=== PATIENT | female | born 1970 | race Caucasian/White ===

== ENCOUNTER → 2016-09-23 | Outpatient (CLI) | payer OTHER ==
[~2016-09-23] MED LIST: ACET1TAB84 PO; ADVIN10/60 INH; ADVIN25050 INH; AZEL30SP NAE; BENZ100C84 PO; CLR10 PO; IBUP-1050 PO; KETO10TA PO; MELO7.5T5 PO; MONT1TAB3 PO; OXYC-57 PO; TRAM-10 PO; VNTHFA/IN INH
--- NOTE | 2016-09-23 09:00 | DIAGNOSTIC IMAGING REPORT ---
THYROID ULTRASOUND CLINICAL HISTORY: Incidental left lobe thyroid nodule. COMPARISON STUDY: None. TECHNIQUE: Sonography of the thyroid gland was performed. FINDINGS: The right thyroid lobe measures 4.4 x 1.8 x 1.6 cm and the left lobe measures 6.5 x 2.2 x 3.1 cm. There is a 0.4 cm hypoechoic right lobe nodule. Note is made of a dominant nodule within the lower pole of the left lobe that measures 3.2 x 2.2 x 3.1 cm. This nodule is solid, heterogeneous and slightly echogenic. There is an adjacent 0.9 x 0.5 x 0.9 cm left lobe nodule. IMPRESSION: Indeterminate 3.2 cm nodule within the lower pole of the left thyroid lobe. Ultrasound-guided fine needle aspiration is recommended based on size criteria. Electronically signed by: Chris Madrigal M.D. 09/23/2016 8:58 AM Dictated Date/Time: 09/23/2016 8:56 AM
== END | disposition home or self-care (01) ==
LOC: C.ULTR 08:32
PROVIDERS: ATTEND Family Medicine
DX: E04.1 Nontoxic single thyroid nodule (principal)

== ENCOUNTER → 2016-10-04 | Outpatient (CLI) | payer OTHER ==
--- NOTE | 2016-10-04 10:51 | DIAGNOSTIC IMAGING REPORT ---
Ultrasound guided thyroid aspiration GUIDANCE NEEDLE PLACEMENT CLINICAL HISTORY: THYROID NODULE nodule TECHNIQUE: Ultrasound guided thyroid aspiration COMPARISON STUDY: 09/23/2016 FINDINGS: Following description of the procedure and informed consent, 2 passes with a 25-gauge needle were made to the nodular density/inhomogeneous tissue lower pole left thyroid. There were no complications. IMPRESSION: Successful lower left thyroid fine-needle aspiration. No complications. Pathology report is pending. Electronically signed by: Blair Pacheco M.D. 10/04/2016 10:50 AM Dictated Date/Time: 10/04/2016 10:49 AM
== END | disposition home or self-care (01) ==
LOC: C.ULTR 09:36
PROVIDERS: ATTEND Family Medicine
DX: E04.1 Nontoxic single thyroid nodule (principal)

== ENCOUNTER → 2017-02-01 | Outpatient (CLI) | payer OTHER ==
--- NOTE | 2017-02-02 07:38 | MAMMOGRAPHY REPORT ---
BILATERAL DIGITAL SCREENING MAMMOGRAM TOMOSYNTHESIS WITH CAD: 02/01/2017 CLINICAL HISTORY: Routine screening. TECHNIQUE: Breast tomosynthesis in addition to standard 2D mammography was performed. Current study was also evaluated with a Computer Aided Detection (CAD) system. COMPARISON: Comparison is made to exams dated: 01/28/2016 mammogram, 01/17/2015 mammogram, 01/10/2015 ma mmogram, 01/09/2014 mammogram, and 01/08/2013 mammogram - [facility]. BREAST COMPOSITION: The tissue of both breasts is heterogeneously dense, which may obscure small mas ses. FINDINGS: There is a small stable faint grouping of punctate microcode calcifications in the right up per outer quadrant, that appears similar dating back to at least 01/09/2014, therefore likely benign. No new suspicious mass, architectural distortion or cluster of microcalcifications is seen bilatera lly. IMPRESSION: ACR BI-RADS CATEGORY 1: NEGATIVE There is no mammographic evidence of malignancy. A 1 year screening mammogram is recommended. The pa tient will receive written notification of the results. Approximately 10% of breast cancers are not detected with mammography. A negative mammographic report should not delay biopsy if a clinically suggestive mass is present. Sabine Monk M.D. ay/:02/01/2017 15:48:30 [employer] Designer: May VEGA(Shiraz)(M), [facility] letter sent: Normal 1/2 BI-RADS Code: ACR BI-RADS Category 1: Negative
== END | disposition home or self-care (01) ==
LOC: C.MAMM 07:40
PROVIDERS: ATTEND Obstetrics & Gynecology
DX: Z12.31 Encounter for screening mammogram for malignant neoplasm of breast (principal)

== ENCOUNTER → 2017-03-10 | Outpatient (CLI) | payer OTHER ==
--- NOTE | 2017-03-10 10:37 | DIAGNOSTIC IMAGING REPORT ---
CHEST 2 VIEWS ROUTINE CLINICAL HISTORY: R60.9 [id number] Shortness of breath COMPARISON STUDY: No previous studies for comparison. FINDINGS: The heart is at the upper limits of normal in size. There is no failure. There is no focal pulmonary consolidation. There are no pleural effusions.[ IMPRESSION: No active disease in the chest. Electronically signed by: Leonard Cortes M.D. 03/10/2017 10:36 AM Dictated Date/Time: 03/10/2017 10:35 AM
[2017-03-10 11:57] LABS: BASO % 0.4 %; BASO ABS # 0.03 K/uL (0-0.2); COMPLETE YES; EOS % 2.4 %; HEMATOCRIT 41.3 % (37-47); IG% 0.2 %; LYMPH % 24.6 %; LYMPH ABS # 1.98 K/uL (1.2-3.4); MEAN CELL VOLUME 86.9 fL (80-100); MEAN CORPUSCULAR HEMOGLOBIN 29.9 pg (25-34); MEAN CORPUSCULAR HGB CONC 34.4 g/dl (32-36); MEAN PLATELET VOLUME 10.1 fL (7.4-10.4); MONO % 4.1 %; NEUT % 68.3 %; PLATELET COUNT 257 K/uL (130-400); RED BLOOD COUNT 4.75 M/uL (4.2-5.4); WHITE BLOOD COUNT 8.04 K/uL (4.8-10.8)
[2017-03-10 12:07] LABS: INR 0.9 (0.9-1.1); PROTHROMBIN TIME (PATIENT) 10.1 SECONDS (9.0-12.0)
[2017-03-10 12:22] LABS: ALB/GLOB RATIO 0.9 (0.9-2); ALKALINE PHOSPHATASE 71 U/L (45-117); ALT/SGPT 27 U/L (12-78); AST/SGOT 12 U/L (15-37); BLOOD UREA NITROGEN 14 mg/dl (7-18); BUN/CREATININE RATIO 20.9 (10-20); CALCIUM 8.6 mg/dl (8.5-10.1); CARBON DIOXIDE 28 mmol/L (21-32); CHLORIDE 106 mmol/L (98-107); CREATININE 0.65 mg/dl (0.60-1.20); GLUCOSE 88 mg/dl (70-99); SODIUM 139 mmol/L (136-145)
== END | disposition home or self-care (01) ==
LOC: C.RAD1850 10:14
PROVIDERS: ATTEND Nurse Practitioner Family
DX: R60.9 Edema, unspecified (principal); R06.02 Shortness of breath

== ENCOUNTER 2017-04-22 10:44 | Day surgery (SDC) | payer OTHER ==
[2017-03-24 08:10] VITALS: BMI 50.0
--- NOTE | 2017-03-24 08:45 | PAT Medication Instructions ---
Service Date Mar 24, 2017. Current Home Medication List Acetaminophen (Tylenol Arthritis Ext Rel), 650 MG PO Q8H PRN for Pain Albuterol Hfa (Ventolin Hfa), 2-4 PUFFS INH Q6H PRN for Wheezing Azelastine Hcl-Fluticasone Pro (Dymista), 1 SPRY MYNOR QPM Fluticasone Prop/Salmeterol (Advair Diskus 250-50 Mcg/Dose), 1 PUFF INH BID Ibuprofen (Advil), 400 MG PO Q4 PRN for Pain Meloxicam (Mobic), 15 MG PO QPM Montelukast Sodium (Singulair), 1 TAB PO QPM Medication Instructions For Your Scheduled Surgery - Check with surgeon for instructions: Ibuprofen (Advil), 400 MG PO Q4 PRN for Pain Meloxicam (Mobic), 15 MG PO QPM - Take the following medications the morning of surgery with a sip of water: Acetaminophen (Tylenol Arthritis Ext Rel), 650 MG PO Q8H PRN for Pain (if needed ) Albuterol Hfa (Ventolin Hfa), 2-4 PUFFS INH Q6H PRN for Wheezing (if needed) Fluticasone Prop/Salmeterol (Advair Diskus 250-50 Mcg/Dose), 1 PUFF INH BID - Take the following medications as scheduled the night before surgery: Montelukast Sodium (Singulair), 1 TAB PO QPM Fluticasone Prop/Salmeterol (Advair Diskus 250-50 Mcg/Dose), 1 PUFF INH BID Azelastine Hcl-Fluticasone Pro (Dymista), 1 SPRY MYNOR QPM Acetaminophen (Tylenol Arthritis Ext Rel), 650 MG PO Q8H PRN for Pain (if needed) Albuterol Hfa (Ventolin Hfa), 2-4 PUFFS INH Q6H PRN for Wheezing (if needed) If you have any questions please call us at [phone] or [phone] or [phone]
--- NOTE | 2017-04-21 11:18 | HISTORY & PHYSICAL EXAMINATION ---
DATE OF ADMISSION: 04/22/2017 CHIEF COMPLAINT: Left shoulder pain. HISTORY OF PRESENT ILLNESS: Laureen is a very pleasant 46-year-old female who has been having left shoulder pain for the past 10 months. MRI and clinical examination have been diagnostic for AC joint arthritis of the right shoulder. After failing extensive conservative treatment including multiple injections, she has elected to proceed with a left shoulder arthroscopy. PAST MEDICAL HISTORY: Asthma, obesity and seasonal allergies. MEDICATIONS: Meloxicam daily, Singulair daily, Advair daily, nasal spray daily, and Advil as needed. PAST SURGICAL HISTORY: Cholecystectomy, knee arthroscopy and foot surgery. ALLERGIES: None. FAMILY HISTORY: Noncontributory. SOCIAL HISTORY: She denies any tobacco, alcohol or IV drug use. REVIEW OF SYSTEMS: She complains of left shoulder pain. All other pertinent review of systems are negative. PHYSICAL EXAMINATION: GENERAL: She is awake, alert and oriented x3. She is in no apparent distress. She is very pleasant. HEENT: Pupils are equal, round and reactive to light. Extraocular motion intact. Oral mucosa is pink and moist. HEART: Regular rate per radial pulse. LUNGS: Qiana symmetrically bilaterally with no audible breath sounds. ABDOMEN: Soft, nontender, nondistended. MUSCULOSKELETAL: On physical examination of the left shoulder she has close to full range of motion. She has 5/5 muscle strength to full can testing and external rotation. She has a lot of pain over the AC joint and moderate pain over the subacromial space. She has no pain with strength testing of her shoulder. IMAGING: MRI of the shoulder does show advanced arthritis of the AC joint. There is also some mild bursitis and tendinitis of the rotator cuff. IMPRESSION: Acromioclavicular joint arthritis of the right shoulder. PLAN: Will proceed with a shoulder arthroscopy to include a distal clavicle resection. Postoperatively, she will be placed in an arm sling and discharged to home on oral pain medications.
[~2017-04-22] VITALS: Ht 157.5 cm; Wt 124.9 kg
--- NOTE | 2017-04-22 06:53 | History & Physical Bridge Note ---
H&P Re-Evaluation Bridge Note: I have examined the patient, reviewed the History & Physical and in the interval since the performance of the History & Physical I have noted the following changes of clinical significance: No changes noted
[~2017-04-22 10:44] MED LIST changes: +ACETAMINOPHEN 500 MG TAB PO SCH; -ADVIN10/60 INH; +ATROPINE SULFATE 0.1 MG/ML 5ML SYR IV PRN; -BENZ100C84 PO; +CEFAZOLIN 3000 MG/65 ML D5W 65 ML IV SCH; -CLR10 PO; +EpHEDrine SULFATE INJ 50 MG/ML AMP IV PRN; +FENTANYL CITRATE INJ 50 MCG/1 ML 2 ML VIAL ONE; -KETO10TA PO; +LACTATED RINGER'S 1000ML 1,000 ML IV SCH; +LACTATED RINGER'S 1000ML IV SCH; +LIDOCAINE HCL 2% 2 ML VIAL (20MG/ML) ONE; +MIDAZOLAM HCL 1 MG/ML 2ML VIAL ONE; +ONDANSETRON INJ 2 MG/ML 2 ML VIAL IV PRN; +ONDANSETRON INJ 2 MG/ML 2 ML VIAL ONE; -OXYC-57 PO; +PROMETHAZINE HCL INJ 12.5 MG in SODIUM CHLORIDE 0.9% 50ML 50 ML IV PRN; +PROPOFOL IV EMULSION 10 MG/ML 20 ML VIAL IV ONE; +ROPIVACAINE 0.5% 5 MG/ML 30 ML VIAL ONE; -TRAM-10 PO
[2017-04-22 11:10] VITALS: BP 158/95; PULSE 98; TEMP 36.7; O2SAT 99; Ht 157.5 cm; Wt 124.9 kg
[2017-04-22] MEDS ORDERED: CLR10 PO (11:26)
[2017-04-22] MEDS ORDERED: EpINEphrine HCL INJ 1 MG/ML 5ML SYRINGE ONE (11:59)
[2017-04-22] MEDS ORDERED: BUPIVACAINE/EPINEPHRINE 0.5% MPF 1:200,000 30 ML VIAL ONE (11:59)
[2017-04-22] MEDS ORDERED: MoRPHine SULFATE 2 MG/ML CARP ONE (13:19)
[2017-04-22] MEDS ORDERED: KETOROLAC TROMETHAMINE 30 MG/ML VIAL ONE (13:34)
[2017-04-22] MEDS ORDERED: KETO10TA PO (13:40)
[2017-04-22] MEDS ORDERED: OXYC-57 PO (13:40)
[2017-04-22] MEDS ORDERED: SODIUM CHLORIDE 0.9% 1000ML 1,000 ML IV SCH (13:41)
--- NOTE | 2017-04-22 13:41 | Discharge Instructions ---
Discharge Instructions Date of Service Apr 22, 2017. Admission Reason for Admission: Left Shoulder Arthritis Of Acromioclavicular Joint Discharge Discharge Diagnosis / Problem: SAME ABOVE Discharge Goals Goal(s): Decrease discomfort, Improve function Activity Recommendations Activity Limitations: as noted below Lifting Limitations: gradually increase as tolerated Exercise/Sports Limitations: gradually increase as tolerated Shower/Bathe: tomorrow . Instructions / Follow-Up Instructions / Follow-Up MEDICATIONS: * Resume previous medications unless instructed otherwise by your surgeon. * Always take pain medication on a full stomach or with food to avoid upset stomach. * Do not drink alcohol or drive while taking narcotics. * Ibuprofen or Tylenol may be taken if narcotic not needed. SPECIAL CARE INSTRUCTIONS: __ None _X_ Keep extremity elevated and iced x 48 hours; apply ice 20-30 minutes 8-10 times/day. May remove at night. _X_ Sling (WEAR NEEDED FOR COMFORT) __24 hrs/day __ Remove at night __ Shoulder Immobilizer __ 24 hrs/day __ Remove at night _X_ Dressing __ Maintain until seen in office, may shower with plastic over site _X_ Remove dressings in 24-48 hours and then may shower _X_ Cover incisions with band-aids after showering __ Do not remove steri-strips Call physician if chills or temperature rises above 102 degrees or pain unrelieved by prescribed pain medications at . . Current Hospital Diet Patient's current hospital diet: Discharge Diet Recommended Diet: Regular Diet Fluid Restriction: None Procedures Procedures Performed: Left Shoulder Arthroscopy Subacromial Decompression Distal Clavicle Resection Pending Studies Studies pending at discharge: no Work Instructions Return To Work: after follow-up Medical Emergencies . Who to Call and When: Medical Emergencies: If at any time you feel your situation is an emergency, please call 911 immediately. . Non-Emergent Contact Non-Emergency issues call your: Primary Care Provider Call Non-Emergent contact if: you have a fever, temperature is above 101.5 . "Provider Documentation" section prepared by Leroy Kennedy. . VTE Core Measure Inpt VTE Proph given/why not?: Treatment not indicated
[2017-04-22] MEDS ORDERED: OXYCODONE/ACETAMINOPHEN 5-325 TAB PO PRN ×2 (13:45)
[2017-04-22] MEDS ORDERED: ONDANSETRON INJ 2 MG/ML 2 ML VIAL IV PRN (13:45)
[2017-04-22] MEDS: FENTANYL CITRATE INJ 50 MCG/1 ML 2 ML VIAL IV PRN ×4 (13:49→14:06)
[2017-04-22] MEDS: HYDROmorphone INJ 1 MG/ML SYR IV PRN ×3 (14:13→14:18)
--- NOTE | 2017-04-22 14:32 | [facility] Post Operative Brief Note ---
Immediate Operative Summary Operative Date Apr 22, 2017. Pre-Operative Diagnosis Acromioclavicular Joint Arthritis of the Left Shoulder Post-Operative Diagnosis Acromioclavicular Joint Arthritis of the Left Shoulder Procedure(s) Performed Left Shoulder Arthroscopy Subacromial Decompression Distal Clavicle Resection Surgeon Ralph Whittling Room Operator Surgeon(s) Aurelio Kennedy PA-C Estimated Blood Loss 5CC Findings as above Specimens NONE Complication(s) None Disposition Recovery Room / PACU
[2017-04-22 14:43] VITALS: BP 132/77; PULSE 99; TEMP 36.4; O2SAT 94
[2017-04-22 15:13] VITALS: BP 132/72; PULSE 95; O2SAT 95
--- NOTE | 2017-04-22 15:26 | Anesthesiology Progress Note ---
Anesthesia Post Op Note Date & Time Apr 22, 2017 at 15:26 Vital Signs Pain Intensity: 10.0 Vital Signs Past 12 Hours Date Time Temp Pulse Resp B/P (MAP) Pulse Ox O2 Delivery O2 Flow Rate FiO2 04/22/17 14:43 36.4 99 18 132/77 94 Room Air 04/22/17 14:30 36.4 99 14 130/84 93 Room Air 04/22/17 14:20 99 12 125/87 96 Room Air 04/22/17 14:10 101 17 141/78 93 Room Air 04/22/17 14:00 100 18 144/81 98 Oxymask 10 04/22/17 13:50 97 17 150/87 100 Oxymask 10 04/22/17 13:42 36.3 105 21 171/102 100 Oxymask 10 04/22/17 11:10 36.7 98 18 158/95 (116) 99 Room Air Notes Mental Status: alert / awake / arousable, participated in evaluation Pt Amnestic to Procedure: Yes Nausea / Vomiting: adequately controlled Pain: adequately controlled Airway Patency, RR, SpO2: stable & adequate BP & HR: stable & adequate Hydration State: stable & adequate Anesthetic Complications: no major complications apparent
[2017-04-22 15:43] VITALS: BP 130/70; PULSE 89; O2SAT 96
--- NOTE | 2017-04-22 18:18 | OPERATIVE REPORT ---
DATE OF OPERATION: 04/22/2017 PREOPERATIVE DIAGNOSIS: Acromioclavicular joint arthritis of the left shoulder. POSTOPERATIVE DIAGNOSIS: Same. PROCEDURE: Left shoulder diagnostic arthroscopy with limited debridement, acromioplasty, and distal clavicle resection. SURGEON: Dr. Ever Rosas. PROJECT ECONOMIST: Aurelio Kennedy PA-C, whose assistance was necessary for positioning the arm up and helping with instrumentation and closure. ANESTHESIA: General with a left interscalene nerve block. COMPLICATIONS: None. CONDITION: Stable to PACU. INDICATIONS: Laureen is a pleasant 46-year-old female who presented to my office with increasing left shoulder pain. MRI and clinical examination were diagnostic for acromioclavicular joint arthritis of the left shoulder. After failing conservative treatment, she elected to undergo a left shoulder arthroscopy. DESCRIPTION OF PROCEDURE: On 04/22/2017, she arrived at [facility] for the above procedure. She was seen in the preoperative holding area and the operative extremity was identified and signed. She was given preoperative antibiotics and a left interscalene nerve block. She was taken back to the operating room, laid on the table in supine position and put under general anesthesia. She was then put into the beachchair position. The left shoulder was prepped and draped in sterile fashion. Time-out was done and the patient and operative extremity was properly identified. A scope was introduced in the posterior portal. Diagnostic arthroscopy showed no cartilage damage to the humeral head or the glenoid. There was a little fraying of the anterior labrum. The biceps tendon was intact. There was some fraying of the anterior articular margin of the supraspinatus. The infraspinatus, teres minor and subscapularis were all checked and intact. An anterior portal was made. A shaver was used to do a limited debridement of the intraarticular structures. The biceps tendon was pulled into the joint and no pathology was identified. The scope was then put into the subacromial space. A lateral portal was made. A shaver was used to do a complete subacromial and subdeltoid bursectomy. An ablator was used to tease the coracoacromial ligament off the undersurface of the acromion and a 5-0 liborio was used to complete an acromioplasty of a Bigliani type 2 acromion. A shaver was used to remove any excess debris and the bursal side of the rotator cuff was examined extensively without evidence of tear. Attention was then turned to the distal clavicle. Through an anterior portal, a shaver and ablator were used to skeletonize the distal clavicle. A 5-0 liborio was then used to resect the distal 7 mm from the clavicle. Complete resection was checked under direct visualization. A shaver was used to remove any excess debris. Final diagnostic arthroscopy showed no additional pathology. Arthroscopic instrument removed from the shoulder. Portal sites were closed with 3-0 nylon. She was then placed in a soft dressing and a regular arm sling. She was then extubated, transferred to a litter and taken to the postanesthesia care unit in stable condition. She tolerated the procedure well. I attest to the content of the Intraoperative Record and any orders documented therein. Any exception s are noted below.
== END 2017-04-22 15:47 | disposition home or self-care (01) ==
LOC: C.ACU 10:44
PROVIDERS: ATTEND Orthopaedic Surgery
DX: M19.011 Primary osteoarthritis, right shoulder (principal); J45.909 Unspecified asthma, uncomplicated; Z98.890 Other specified postprocedural states; Z90.49 Acquired absence of other specified parts of digestive tract; E66.01 Morbid (severe) obesity due to excess calories; Z68.43 Body mass index [BMI] 50.0-59.9, adult

== ENCOUNTER 2023-07-29 05:23 | Observation (INO) ==
--- NOTE | 2023-07-06 13:56 | PAT Medication Instructions ---
Medication Instructions Date of Service July 06, 2023 Home Medications Medication Instructions Recorded inhalational spacing device #1 ea 05/22/19 (LiteAire MDI Chamber) CPAP Machine #1 ea 09/20/19 trazodone 50 mg tablet 50 mg PO HS #90 tabs 10/25/22 cyclobenzaprine 10 mg tablet 10 mg PO TID PRN muscle spasm #30 11/30/22 tabs losartan 100 0.5 tab PO BID #60 tabs 01/26/23 mg-hydrochlorothiazide 25 mg tablet semaglutide (weight loss) 0.25 See Rx Instructions subcut 03/03/23 mg/0.5 mL subcutaneous pen .COMPLEX #2 mL injector ([employer]) meloxicam 15 mg tablet 7.5 mg (1/2 x 15 mg) PO BID PRN 03/10/23 pain #30 tabs montelukast 10 mg tablet 10 mg PO QPM #90 tabs 05/18/23 (Singulair) albuterol sulfate 90 mcg/actuation aerosol inhaler (Ventolin HFA) 1 - 2 inh inhalation Q6H PRN Shortness Of Breath azelastine 137 mcg (0.1 %) nasal spray aerosol 1 spray intranasal BID PRN Cold Symptoms estradiol 0.01% (0.1 mg/gram) vaginal cream 1 appful vaginal DAILY PRN menopause symptoms fluticasone propionate 50 mcg/actuation nasal spray,suspension 1 spray intranasal BID PRN Congestion trazodone 50 mg tablet 50 mg PO HS cyclobenzaprine 10 mg tablet 10 mg PO TID PRN muscle spasm losartan 100 mg-hydrochlorothiazide 25 mg tablet 0.5 tab PO BID semaglutide (weight loss) 0.25 mg/0.5 mL subcutaneous pen injector (Wegovy) See Rx Instructions meloxicam 15 mg tablet 7.5 mg (1/2 x 15 mg) PO BID PRN pain montelukast 10 mg tablet (Singulair) 10 mg PO QPM loratadine 10 mg tablet (Claritin) 10 mg PO DAILY PRN Allergy Symptoms ASK your surgeon for instructions meloxicam 15 mg tablet 7.5 mg (1/2 x 15 mg) PO BID PRN pain ASK your prescriber and surgeon estradiol 0.01% (0.1 mg/gram) vaginal cream 1 appful vaginal DAILY PRN menopause symptoms STOP taking 7 days before surgery semaglutide (weight loss) 0.25 mg/0.5 mL subcutaneous pen injector (Weflorentinov[employer]) See Rx Instructions DO NOT take the morning of surgery losartan 100 mg-hydrochlorothiazide 25 mg tablet 0.5 tab PO BID loratadine 10 mg tablet (Claritin) 10 mg PO DAILY PRN Allergy Symptoms Take morning of surgery With a small sip of water, OTHERWISE NOTHING TO EAT OR DRINK AFTER MIDNIGHT: albuterol sulfate 90 mcg/actuation aerosol inhaler (Ventolin HFA) 1 - 2 inh inhalation Q6H PRN Shortness Of Breath (use if needed; please bring with you to hospital day of surgery if possible) azelastine 137 mcg (0.1 %) nasal spray aerosol 1 spray intranasal BID PRN Cold Symptoms (if needed) fluticasone propionate 50 mcg/actuation nasal spray,suspension 1 spray intranasal BID PRN Congestion (if needed) cyclobenzaprine 10 mg tablet 10 mg PO TID PRN muscle spasm (if needed) Take evening before surgery albuterol sulfate 90 mcg/actuation aerosol inhaler (Ventolin HFA) 1 - 2 inh inhalation Q6H PRN Shortness Of Breath (if needed) azelastine 137 mcg (0.1 %) nasal spray aerosol 1 spray intranasal BID PRN Cold Symptoms (if needed) fluticasone propionate 50 mcg/actuation nasal spray,suspension 1 spray intranasal BID PRN Congestion (if needed) trazodone 50 mg tablet 50 mg PO HS cyclobenzaprine 10 mg tablet 10 mg PO TID PRN muscle spasm (if needed) losartan 100 mg-hydrochlorothiazide 25 mg tablet 0.5 tab PO BID montelukast 10 mg tablet (Singulair) 10 mg PO QPM loratadine 10 mg tablet (Claritin) 10 mg PO DAILY PRN Allergy Symptoms (if needed) Other Notes If you have any questions please call us at [phone] or [phone] or [phone] or [phone]
--- NOTE | 2023-07-13 09:06 | Anesthesiology Consultation ---
Date of Service July 13, 2023 Assessment & Plan (1) Encounter for pre-operative examination: - Morbid obesity: Patient has rx for Wegovy for weight loss. Per patient, she has been waiting for months as Wegovy is backordered. She is aware of preop weekly injectable instructions to not take Wegovy within 7 days of surgery- she indicates she will not be starting until after surgery. - Infectious disease screening: Per assessment on 07/13/23: No known infectious disease contacts or current infectious disease symptoms. No noted recent Covid positive test result. Chart Review Chart Review: Acceptable Risk for Surgery and Patient seen in Pre Admission Testing Teaching & Discussion Pre-Anesthesia Teaching/Discussion Notes: Instructed NPO after midnight before surgery,except medications with 15 cc of water. Medication instructions provided according to the PAT guidelines. History Surgery Operation Date: 07/29/23 09:55 Proposed Procedures p Total Knee Arthroplasty Bilateral - Ever Rosas, DO Height/Weight Height: 5 ft 2 in Weight: 108.4 kg Allergies Allergy/AdvReac Type Severity Reaction Status Date / Time No Known Allergies Allergy Verified 07/06/23 13:07 Medications Home Medications Medication Instructions Recorded Confirmed Last Taken inhalational spacing device #1 ea 05/22/19 05/18/23 Unknown (LiteAire MDI Chamber) CPAP Machine #1 ea 09/20/19 05/18/23 Unknown albuterol sulfate 90 mcg/actuation 1 - 2 inh inhalation Q6H PRN 09/27/22 07/06/23 Unknown aerosol inhaler (Ventolin HFA) Shortness Of Breath azelastine 137 mcg (0.1 %) nasal 1 spray intranasal BID PRN Cold 09/27/22 07/06/23 Unknown spray aerosol Symptoms estradiol 0.01% (0.1 mg/gram) 1 appful vaginal DAILY PRN 09/27/22 07/06/23 Unknown vaginal cream menopause symptoms fluticasone propionate 50 1 spray intranasal BID PRN 09/27/22 07/06/23 Unknown mcg/actuation nasal Congestion spray,suspension trazodone 50 mg tablet 50 mg PO HS #90 tabs 10/25/22 07/06/23 Unknown cyclobenzaprine 10 mg tablet 10 mg PO TID PRN muscle spasm #30 11/30/22 07/06/23 Unknown tabs losartan 100 0.5 tab PO BID #60 tabs 01/26/23 07/06/23 Unknown mg-hydrochlorothiazide 25 mg tablet semaglutide (weight loss) 0.25 See Rx Instructions subcut 03/03/23 07/06/23 Unknown mg/0.5 mL subcutaneous pen .COMPLEX #2 mL injector (Wegovy) meloxicam 15 mg tablet 7.5 mg (1/2 x 15 mg) PO BID PRN 03/10/23 07/06/23 Unknown pain #30 tabs montelukast 10 mg tablet 10 mg PO QPM #90 tabs 05/18/23 07/06/23 Unknown (Singulair) loratadine 10 mg tablet (Claritin) 10 mg PO DAILY PRN Allergy Symptoms 07/06/23 07/06/23 Unknown Past Medical History Medical History Seasonal allergies Obesity Rx wegovy for weight loss (will not be starting until after surgery, currently on backorder) Osteoarthritis Obstructive sleep apnea syndrome CPAP (compliant) History of thyroid nodule History of asthma Benign essential hypertension Anxiety disorder Depression Dysmetabolic syndrome X Chronic gastroesophageal reflux disease Morbid obesity Exercise / Class Metabolic Activity II 4-5 Yardwork/Stairs/Walk up hill (one FS (no CP, no SOB)) Past Family History Family History Mother Osteoporosis Rheumatoid arthritis Hypertension Fibroids Father Osteoporosis Rheumatoid arthritis Stroke Parkinson disease Vertigo Denies family history of Ovarian cancer Prostate cancer Myocardial infarction Breast cancer Colorectal cancer Past Surgical History Surgical History Hx of colonoscopy Hx of cataract surgery S/P arthroscopy of right knee History of esophagogastroduodenoscopy (EGD) History of myringotomy ear tubes Status post biopsy of thyroid gland benign History of bunionectomy Left History of knee surgery Left History of shoulder surgery Left History of tubal ligation History of cholecystectomy S/P wisdom tooth extraction Past Anesthesia History No Hx of Anesthesia Complications and No Family Hx of Anesthesia Complications History of PONV No Hx of PONV and No Hx of Motion Sickness Social History Smoking Status: Former smoker tobacco type: cigarettes Do You Dip or Chew Tobacco: No Smoking End Date: Quit in her 20s Hx Alcohol Use: Yes Alcohol type: beer alcohol intake frequency: holidays/special occasions only Hx Substance Use: No substance use type: does not use Review of Systems Patient denies chest pain, shortness of breath, dyspnea on exertion, fever, chills, cough, wheezing, palpitations. Physical Exam Vital Signs VITALS BP 141/85 P 91 TEMP 98.3 SP02 98%RA RESP 18 PHYSICAL Full cervical extension range of motion. Full TMJ range of motion. TMD 3 finger breaths Mallampati Score 1 Dentition: intact Lungs: clear throughout to auscultation Cardiac: regular rate and rhythm, no murmurs noted Spine: normal Carotid arteries: negative bruit Extremities: no LE edema Thick neck Lab Results Anesthesia Preop Results Results Anesthesia Widget: WBC 10.32 K/ul (4.8-10.8) 07/13/23 Hgb 12.5 g/dl (12.0-16.0) 07/13/23 Hct 39.2 % (37.0-47.0) 07/13/23 Plt 272 K/uL (130-400) 07/13/23 Na 142 mmol/L (136-145) 07/13/23 K 4.3 mmol/L (3.5-5.1) 07/13/23 Cl 106 mmol/L (98-107) 07/13/23 CO2 30 mmol/L (21-32) 07/13/23 BUN 18 mg/dl (6-23) 07/13/23 Creat 0.73 mg/dl (0.6-1.2) 07/13/23 Glucose Level 96 mg/dl (70-99(Fasting)) 07/13/23 PT 10.3 Seconds (9.0-12.0) 07/13/23 PTT 28 Seconds (21-31) 07/13/23 INR 0.9 (0.9-1.1) 07/13/23 Blood Type O Positive 07/13/23 Antibody Screen NEGATIVE 07/13/23 Testing Electrocardiogram Date: 07/13/23 NSR at 83bpm. "Normal ECG" Chest X-Ray Date: 07/13/23 FINDINGS: Lung volumes are normal. Lungs are clear. There is no pneumothorax or pleural effusion. Cardiac size is stable. Mediastinal contours are normal. There is no evidence for pulmonary edema. IMPRESSION: No acute cardiopulmonary findings.
[~2023-07-29 05:23] MED LIST changes: -ACET1TAB84 PO; -ACETAMINOPHEN 500 MG TAB PO SCH; -ADVIN25050 INH; -ATROPINE SULFATE 0.1 MG/ML 5ML SYR IV PRN; -AZEL30SP NAE; -CEFAZOLIN 3000 MG/65 ML D5W 65 ML IV SCH; -EpHEDrine SULFATE INJ 50 MG/ML AMP IV PRN; -FENTANYL CITRATE INJ 50 MCG/1 ML 2 ML VIAL ONE; -IBUP-1050 PO; -LACTATED RINGER'S 1000ML 1,000 ML IV SCH; -LACTATED RINGER'S 1000ML IV SCH; -LIDOCAINE HCL 2% 2 ML VIAL (20MG/ML) ONE; -MELO7.5T5 PO; -MIDAZOLAM HCL 1 MG/ML 2ML VIAL ONE; -MONT1TAB3 PO; -ONDANSETRON INJ 2 MG/ML 2 ML VIAL IV PRN; -ONDANSETRON INJ 2 MG/ML 2 ML VIAL ONE; -PROMETHAZINE HCL INJ 12.5 MG in SODIUM CHLORIDE 0.9% 50ML 50 ML IV PRN; -PROPOFOL IV EMULSION 10 MG/ML 20 ML VIAL IV ONE; -ROPIVACAINE 0.5% 5 MG/ML 30 ML VIAL ONE; -VNTHFA/IN INH; +[UNRECOGNIZED DRUG - OTHER] SCH
[2023-07-29] MEDS ORDERED: LR 60ML/HR IV SCH (06:00)
[2023-07-29] MEDS ORDERED: LR 500ML BOLUS, THEN 15ML/HR IV SCH (06:00)
[2023-07-29] MEDS ORDERED: ACETAMINOPHEN 500 MG TAB PO SCH (06:00)
[2023-07-29] MEDS ORDERED: TRANEXAMIC ACID 1,000 MG **IV Intra-op IV SCH (06:00)
[2023-07-29] MEDS ORDERED: dexAMETHasone**PF** 10 MG/ML VIAL IV SCH (06:00)
[2023-07-29] MEDS ORDERED: ORTHO JOINT MIX INFIL SCH (06:00)
[2023-07-29] MEDS ORDERED: GABAPENTIN 900 MG DOSE PO SCH (06:00)
[2023-07-29] MEDS ORDERED: ceFAZolin 2000MG 2,000 MG/15 ML SYR IV SCH (06:00)
[2023-07-29] MEDS ORDERED: FAMOTIDINE 20 MG TAB PO SCH (06:00)
[2023-07-29] MEDS ORDERED: TRANEXAMIC ACID 1,000 MG **IV Pre-op IV SCH (06:00)
[2023-07-29] MEDS ORDERED: ROPIVACAINE 0.5% 5 MG/ML 30 ML VIAL ONE (06:14)
[2023-07-29] MEDS ORDERED: BUPIVACAINE 0.5 % 5 MG/1 ML PF 10ML VIAL ONE (06:14)
--- NOTE | 2023-07-29 06:28 | History & Physical Bridge Note ---
Date of Service July 29, 2023 History & Physical Bridge Note I have examined the patient, reviewed the History & Physical and in the interval since the performance of the History & Physical I have noted the following changes of clinical significance: no changes noted
[2023-07-29] MEDS ORDERED: PROPOFOL IV EMULSION 10 MG/ML 20 ML VIAL IV ONE ×5 (06:36→09:03)
[2023-07-29] MEDS ORDERED: LIDOCAINE 2% 2 ML VIAL/AMP(20MG/ML) INFIL ONE (06:36)
[2023-07-29] MEDS ORDERED: fentaNYL citrate PF 100 MCG/2 ML VIAL ONE (06:38)
[2023-07-29] MEDS ORDERED: MIDAZOLAM HCL 1 MG/ML 2ML VIAL ONE ×2 (06:38→07:02)
[2023-07-29] MEDS ORDERED: fentaNYL citrate PF 100 MCG/2 ML VIAL IV PRN (06:55)
[2023-07-29] MEDS ORDERED: ONDANSETRON INJ 2 MG/ML 2 ML VIAL IV PRN ×2 (06:55→11:05)
[2023-07-29] MEDS ORDERED: ePHEDrine sulfate 50 MG/ML AMP IV PRN (06:55)
[2023-07-29] MEDS ORDERED: ATROPINE SULFATE 0.1 MG/ML 10ML SYR IV PRN (06:55)
[2023-07-29] MEDS ORDERED: ONDANSETRON INJ 2 MG/ML 2 ML VIAL ONE (07:05)
[2023-07-29] MEDS ORDERED: DEXAMETHASONE SOD INJ 4 MG/ML VIAL ONE (07:05)
[2023-07-29] MEDS ORDERED: ORTHO JOINT ANESTHETIC ONE (07:19)
--- NOTE | 2023-07-29 08:59 | Operative Report ---
PG Post Operative Report Pre & Post Diagnosis Operation Date: 07/29/23 07:00 Pre-Op Diagnosis: Degenerative Joint Disease Bilateral Knees Post-Op Diagnosis: Degenerative Joint Disease Bilateral Knees I identified the patient and participated in the time-out.: Yes Procedure Operation Date: 07/29/23 07:00 Actual Procedures p Bilateral Total Knee Arthroplasty(Bilateral) - Ever Rosas DO Surgeon Ever Rosas DO Milk [employer] Lime Slaker Ever Soler PA-C Estimated Blood Loss 60 Findings Consistent with Post-Op Diagnosis Specimens Right and left femoral and tibial bone Description of Procedure Laureen arrived [facility] for the above procedure. She was seen in the preoperative holding area and both knees were identified and signed. She was given a preoperative antibiotic, TXA, a spinal anesthetic and adductor nerve blocks. She was taken back to the operating room and laid on the table in supine position. She was given basic sedation. Both knees were then prepped and draped in sterile fashion. A timeout was done, and the patient and the operative extremities were properly identified. Right knee implants used: I used a Haim Persona total knee arthroplasty system with a size 9 narrow femur, D tibia, 28 oval patella, and a size 12 medial congruent polyethylene bearing. All components were cemented in place with Palacos G cement. A midline incision was made directly over the patella. Dissection was taken down to the extensor mechanism. A midvastus arthrotomy was used. The medial retinaculum was released and the fat pad was mostly excised. The knee was flexed and the ACL, PCL, and meniscus were removed. A drill was sent down the center of the femoral canal followed by an intramedullary samra. Off that samra a distal femoral cutting block was placed. 9 mm was resected off the distal femur at 5 of valgus. A posterior referencing AP sizing guide was then placed on the distal femur. The femur measured to be a size 9. 2 drill holes were placed in 3 of external rotation. A 4-in-1 cutting block was then impacted into place. Anterior, posterior, and chamfer cuts were then made. The proximal tibia was then exposed. An external tibial alignment guide was placed. A tibial cut guide was then anchored in place and the proximal tibia was then resected. The posterior aspect of the knee was then opened up and any additional meniscus fragments and osteophytes were removed. The tibia measured to be a size D. The tibial plate was then placed in the appropriate rotation and the tibia was drilled and punched. Trial components were then placed. I used a size 12 medial congruent polyethylene insert. The knee was brought through a full range of motion and felt to be stable. The peg holes for the femur were then drilled. The patella was then everted and 9 mm was resected off the posterior aspect of the patella. The patella measured to be a size 28 oval. 3 peg holes were then drilled. A trial patella was placed. The knee was once again brought through a full range of motion and felt to be stable. Trial components were then removed. The surrounding soft tissues were injected with 50 cc of an orthopedic pain control cocktail. All components were then cemented into place with Palacos G cement. The final polyethylene insert was then snapped into place. Once cement was dry the tourniquet was deflated. Hemostasis was obtained. A dilute betadyne lavage was then done for 3 minutes. The joint was then irrigated with normal saline solution. The midvastus arthrotomy was then closed with #1 Vicryl suture. The skin was closed with 2-0 Vicryl, 3-0V lock suture, and anjelica. A Silverlon and a soft compressive dressing were placed. Left knee implants used: I used a Haim Persona total knee arthroplasty system with a size 9 narrow femur, D tibia, 28 oval patella, and a size 14 medial congruent polyethylene bearing. All components were cemented in place with Palacos G cement. A midline incision was made directly over the patella. Dissection was taken down to the extensor mechanism. A midvastus arthrotomy was used. The medial retinaculum was released and the fat pad was mostly excised. The knee was flexed and the ACL, PCL, and meniscus were removed. A drill was sent down the center of the femoral canal followed by an intramedullary samra. Off that samra a distal femoral cutting block was placed. 9 mm was resected off the distal femur at 5 of valgus. A posterior referencing AP sizing guide was then placed on the distal femur. The femur measured to be a size 9. 2 drill holes were placed in 3 of external rotation. A 4-in-1 cutting block was then impacted into place. Anterior, posterior, and chamfer cuts were then made. The proximal tibia was then exposed. An external tibial alignment guide was placed. A tibial cut guide was then anchored in place and the proximal tibia was resected. The posterior aspect of the knee was then opened up and any additional meniscus fragments and osteophytes were removed. The tibia measured to be a size D. The tibial plate was then placed in the appropriate rotation and the tibia was drilled and punched. Trial components were then placed. I used a size 14 medial congruent polyethylene insert. The knee was brought through a full range of motion and felt to be stable. The peg holes for the femur were then drilled. The patella was then everted and 9 mm was resected off the posterior aspect of the patella. The patella measured to be a size 28 oval. 3 peg holes were then drilled. A trial patella was placed. The knee was once again brought through a full range of motion and felt to be stable. Trial components were then removed. The surrounding soft tissues were injected with 50 cc of an orthopedic pain control cocktail. All components were then cemented into place with Palacos G cement. The final polyethylene insert was then snapped into place. Once cement was dry the tourniquet was deflated. Hemostasis was obtained. A dilute betadyne lavage was then done for 3 minutes. The joint was then irrigated with normal saline solution. The midvastus arthrotomy was then closed with #1 Vicryl suture. The skin was closed with 2-0 Vicryl, 3-0V lock suture, and anjelica. A Silverlon and a soft compressive dressing were placed. Pablo was then transferred to a hospital bed and taken to the postanesthesia care unit in stable condition. She tolerated the procedure well. Ever Soler PA-C, was present for the entire procedure. He was critical for patient positioning, prepping, draping, retraction exposure, wound closure and application of sterile dressing. I attest to the content of the Intraoperative Record and any orders documented therein. Any exceptions are noted below.
--- NOTE | 2023-07-29 09:59 | XRay Report ---
RIGHT KNEE 2 VIEWS History: Right total knee arthroplasty. Degenerative arthritis. Postop. FINDINGS: The patient is status post a right total knee arthroplasty. The hardware is intact. No frac ture or dislocation. Skin anjelica are in place. IMPRESSION: Right total knee arthroplasty. No evidence for hardware complication. ACT 112: Negative or not required by law. Electronically signed by: Wiliam Perdomo M.D. 07/29/2023 9:57 AM
--- NOTE | 2023-07-29 10:28 | Anesthesiology Progress Note ---
Date of Service July 29, 2023 Anesthesia Post Procedure Vital Signs Vital Signs: Temp Pulse Resp BP Pulse Ox O2 Del Method O2 Flow Rate 07/29/23 10:25 82 17 117/71 96 Nasal Cannula 2 07/29/23 10:20 97.5 F L 85 16 115/71 97 Nasal Cannula 2 07/29/23 10:00 87 19 112/86 89 L Room Air 07/29/23 09:50 84 20 120/78 95 Room Air 07/29/23 09:40 87 21 124/73 99 Oxymask 3 07/29/23 09:33 96.8 F L 85 17 127/73 100 Oxymask 6 07/29/23 05:48 98.4 F 99 H 20 135/94 98 Room Air Pain Intensity Bilateral Knee: Pain Intensity: 5 Transfer of Care Handoff Completed per policy Notes Mental Status: alert / awake / arousable and participated in evaluation Patient Amnestic to Procedure: Yes Nausea / Vomiting: adequately controlled Pain: adequately controlled Airway Patency, RR, SpO2: stable & adequate BP & HR: stable & adequate Hydration State: stable & adequate Neuraxial Anesthesia: was administered and sensory block is resolving Anesthetic Complications: no major complications apparent and Pt Satisfied with anesthetic care
[2023-07-29] MEDS ORDERED: MAGNESIUM HYDROXIDE SUSP 30 ML UDC PO PRN (11:05)
[2023-07-29] MEDS ORDERED: NALOXONE HCL 0.4 MG/1 ML VIAL/CARP IV PRN (11:05)
[2023-07-29] MEDS ORDERED: METOCLOPRAMIDE HCL INJ 5 MG/ML 2 ML VIAL IV PRN (11:05)
[2023-07-29] MEDS ORDERED: ALBUTEROL HFA 8 GM INHALER INH PRN (11:05)
[2023-07-29] MEDS ORDERED: AZELASTINE HCL 0.1% NASAL 200 SPRAYS/27,400 MCG BTL PRN (11:05)
[2023-07-29] MEDS ORDERED: HYDROmorphone INJ 0.5 MG/0.5 ML SYR IV PRN (11:05)
[2023-07-29] MEDS ORDERED: LORATADINE 10 MG TAB PO PRN (11:05)
[2023-07-29] MEDS ORDERED: bisacodyL 10 MG SUPP PR PRN (11:05)
[2023-07-29] MEDS ORDERED: FLUTICASONE PROPIONATE NA SPR 16 GM BTL PRN (11:05)
[2023-07-29] MEDS ORDERED: CYCLOBENZAPRINE HCL 10 MG TAB PO PRN (11:05)
--- NOTE | 2023-07-29 11:09 | XRay Report ---
XR knee LT 1 or 2V routine HISTORY: 53 years-old Female Surgical Post Op left knee arthroplasty COMPARISON: 07/13/2023 TECHNIQUE: 2 views of the left knee FINDINGS: Total joint arthroplasty with patellar resurfacing. Anterior midline skin anjelica with expected posto perative soft tissue swelling and deep tissue air. No acute fracture or dislocation. Unchanged 8 mm m etallic density focus along the posterior margin of the distal femoral metaphysis. IMPRESSION: Total joint arthroplasty with expected postoperative changes. ACT 112: Negative or not required by law. The above report was generated using voice recognition software. It may contain grammatical, syntax o r spelling errors. Electronically signed by: Yogi Bojorquez M.D. 07/29/2023 11:08 AM
[2023-07-29] MEDS: KETOROLAC 30 MG/ML VIAL IV SCH ×2 (12:28→17:16)
[2023-07-29] MEDS: SODIUM CHLORIDE 0.9% 1,000 ML IV SCH ×2 (12:32→22:52)
[2023-07-29] MEDS: ACETAMINOPHEN 500 MG TAB PO SCH ×2 (14:25→21:25)
[2023-07-29] MEDS: ceFAZolin 2000MG 2,000 MG/15 ML SYR IV SCH (17:16)
[2023-07-29] MEDS ORDERED: traZODone HCL 50 MG TAB PO SCH (21:00)
[2023-07-29] MEDS ORDERED: MONTELUKAST SODIUM 10 MG TABLET PO SCH (21:00)
[2023-07-29] MEDS ORDERED: SENNA 8.6 MG TAB PO SCH (21:00)
[2023-07-29] MEDS: DOCUSATE SODIUM 100 MG CAP PO SCH (21:20)
[2023-07-29] MEDS: ASPIRIN 81 MG ECTAB PO SCH (21:20)
[2023-07-29] MEDS: LOSARTAN/HCTZ 50/12.5MG TAB PO SCH (21:21)
[2023-07-30] MEDS: KETOROLAC 30 MG/ML VIAL IV SCH ×2 (00:15→05:21)
[2023-07-30] MEDS: ceFAZolin 2000MG 2,000 MG/15 ML SYR IV SCH (00:16)
[2023-07-30] MEDS: oxyCODONE HCL IR 5 MG TAB (IMMEDIATE RELEASE) PO PRN ×2 (02:58→08:38)
[2023-07-30] MEDS: ACETAMINOPHEN 500 MG TAB PO SCH (05:21)
--- NOTE | 2023-07-30 07:56 | Orthopedic Progress Note ---
Date of Service July 30, 2023 Assessment & Plan (1) Status post bilateral knee replacements: Overall she is doing fairly well. She is not having much pain in her knees. She has been up and ambulating to the hallways. She is on aspirin for DVT prophylaxis. She can be discharged home later today. The nursing staff can change her dressings after physical therapy. She will follow-up orthopedics in 2 weeks. Daniela Garduno was seen and examined at bedside this morning. Overall she is doing very well. She is not having much pain in her knees. She has been up and ambulating in the hallways. She has no complaints.. Review of Systems All systems reviewed & are unremarkable except as noted in HPI & below. Physical Exam On physical examination of both knees, the dressings are clean and dry. Her leg is out in full extension. She is active dorsiflexion plantarflexion of both ankles.. Results & Data Results & Data Laboratory Results . Diagnostic Findings Postoperative x-rays of both knees show the prosthesis to be in anatomic alignment without any evidence of fracture, his cage, or loosening.. PG Care Time/CCT Total # of Minutes Spent Total Time Spent with Patient: Total time spent is greater than 50% in coordination of care (as documented) at patient's floor/unit and/or counseling patient: Coding Level of Care Code 47105 Post Operative Follow-Up Diagnoses Status post bilateral knee replacements Z96.653
--- NOTE | 2023-07-30 07:57 | Discharge Summary ---
Date of Service July 30, 2023 Principal Diagnosis Same as "Discharge Diagnosis" noted below under Discharge Instructions. Discharge Exam On physical examination of both knees, the dressings are clean and dry. Her leg is out in full extension. She is active dorsiflexion plantarflexion of both ankles.. Discharge Data Procedures Performed Operation Date: 07/29/23 07:00 Actual Procedures p Bilateral Total Knee Arthroplasty(Bilateral) - Ever Rosas DO Ordered Studies 07/29/23 05:00 US - OR guided needle placemen Routine Hospital Course (1) Status post bilateral knee replacements: On July 29, 2023 Laureen arrived at [facility] and underwent bilateral knee replacements without complication. She had a spinal anesthetic. Postoperatively she was started on aspirin for DVT prophylaxis and transferred to the general orthopedic floors. Her hospital course was uneventful. On postop day #1, her vital signs were stable and her pain was well-controlled. She was able to participate well with physical therapy doing ambulation and range of motion exercises. She was then discharged home. She will follow-up orthopedics in 2 weeks. PG Care Time/CCT Total # of Minutes Spent Total Time Spent with Patient: Total time spent is greater than 50% in coordination of care (as documented) at patient's floor/unit and/or counseling patient: Discharge Plan Discharge Items Patient Disposition: Home - Self-Care Reason For Visit: Degenerative Joint Disease Bilateral Knees Discharge Diagnosis: Bilateral knee replacements Activity: Per Instructions section Non-emergency contact: Surgeon Call non-emergency contact if: your wound has increased redness and your wound has increased drainage Follow-up/Referrals: Dony Hidalgo III, CRNP [Primary Care Provider] - Diet: Regular Addtl Attending Provider Instructions: Activity and Therapy Recommendations: * If you are using [facility] then therapy will be provided at your home until they feel you have accomplished all of your goals. * If you are using [facility] then Physical Therapy will be provided until they feel you are ready to start Outpatient Physical Therapy. * If you are not using home therapy then Outpatient Physical Therapy should start about 3-5 days from your day of surgery. Therapy will last about 6-10 weeks * It is important not to put a pillow under your knee when you are relaxing or sleeping. It is just as important to make sure you are getting your knee perfectly straight as it is to regain your knee bend. * You were shown a series of exercises in the hospital. Do these exercises three times each day including the exercises you were shown in physical therapy. * Get up and walk several times each day. For the first four weeks, try not to stand or walk for more than one hour at a time. If you do stand or walk for more than one hour, you will not hurt anything, but your leg will likely swell. * As you feel comfortable, you may change from the walker or crutches to a cane and then to independent walking. Medications: * Narcotic You will likely be sent home from the hospital with a prescription for the narcotic pain medication that worked best throughout your stay. * Cefadroxil -take the antibiotic twice a day for 10 days to help prevent infection. * Aspirin Most patients will be required to take Aspirin 81mg twice a day for 6 weeks after surgery. This is obtained [id number] and a prescription is not necessary. * Other medications may be prescribed for specific circumstances. If you have any questions, please call the office at . * Resume previous home medications unless otherwise instructed TEDs/Elastic Stockings: The white elastic stockings help limit swelling and prevent blood clots from forming in your legs.~ The more you wear them, the more they work. Wear them for six weeks. Dressing Care: The dressing can be changed after physical therapy on postop day #1. Daily dry dressing changes for a few days, especially if the incision is still draining some. If the incision is not draining then you may leave the anjelica open to air. If there is a little bit of drainage or if the anjelica are getting stuck on your clothing then cover the incision with a dry dressing. The anjelica will be removed at your 2 week follow-up appointment. Showering: You may shower 5 days from the day of surgery as long as the incision is no longer draining. You may shower with the anjelica exposed. Let soapy water run over the anjelica and pat them dry. Do not scrub or soak the incision. Things To Watch For: * Drainage from the incision site that occurs more than one week after your surgery. * Increased redness at the incision site. * Fever above 102 degrees Fahrenheit. * Unusual chest pain or shortness of breath. * Call [facility] at with any of the above problems Follow-Up Visit: Follow-up with Dr. Rosas's PA (Ever Soler) 2-3 weeks after your day of surgery. He will remove your anjelica and answer any questions. If you have any additional questions or concerns, Dr Rosas is usually in the office at the same time and will be available An appointment was probably scheduled when you signed-up for surgery in the office. If you have any questions call Office Instructions: More detailed instructions as well as Frequently Asked Questions were provided in a folder by our office when you signed-up for surgery. Please review these instructions when you get home. If you have any further questions or concerns, please feel free to call the office at [phone] Pending Studies at Discharge: No Stand-Alone Forms: My [facility] [employer], Smoking Cessation Medications and DC Order Prescriptions: New oxycodone 5 mg Tablet 5 mg PO Q4H PRN (Reason: pain) Qty: 30 0RF cefadroxil 500 mg capsule 500 mg PO BID 10 Days Qty: 20 0RF aspirin 81 mg Tablet,Delayed Release (Dr/Ec) 81 mg PO BID 42 Days Qty: 0 0RF Continued trazodone 50 mg tablet 50 mg PO HS Qty: 90 3RF cyclobenzaprine 10 mg tablet 10 mg PO TID PRN (Reason: muscle spasm) Qty: 30 1RF losartan-hydrochlorothiazide 100-25 mg tablet 0.5 tab PO BID Qty: 60 5RF Wegovy 0.25 mg/0.5 mL pen injector See Rx Instructions subcut .COMPLEX Qty: 2 1RF Patient Comments: on back order - has not started Rx Instructions: 0.25 mg once weekly for 4 weeks then 0.5 mg weekly subcutaneously; meloxicam 15 mg tablet 7.5 mg PO BID PRN (Reason: pain) Qty: 30 3RF Patient Comments: takes every day montelukast [Singulair] 10 mg tablet 10 mg PO QPM Qty: 90 3RF (DME) LiteAire MDI Chamber spacer See Dose Instructions .ROUTE .MEDSUPPLY Qty: 1 0RF Dose Instruction: As directed Rx Instructions: As directed (DME) CPAP Machine Misc See Rx Instructions .ROUTE .MEDSUPPLY Qty: 1 0RF Rx Instructions: CPAP 15CM. HEATED HUMIDITY. CPAP SUPPLIES. FULL FACE MASK OF CHOICE. JIMI 99. CARE PLUS O2 azelastine 137 mcg (0.1 %) aerosol,spray 1 spray INTNAS BID PRN (Reason: Cold Symptoms) Rx Instructions: administer into each nostril estradiol 0.01 % (0.1 mg/gram) cream 1 appful vaginal DAILY PRN (Reason: menopause symptoms) Rx Instructions: Apply small amount to perineum daily albuterol sulfate [Ventolin HFA] 90 mcg/actuation HFA aerosol inhaler 1 - 2 inh INH Q6H PRN (Reason: Shortness Of Breath) Patient Comments: has not used for the last 8 months Rx Instructions: 1-2 Puff INH Q6H; fluticasone propionate 50 mcg/actuation spray,suspension 1 spray INTNAS BID PRN (Reason: Congestion) Rx Instructions: administer into each nostril loratadine [Claritin] 10 mg Tablet 10 mg PO DAILY PRN (Reason: Allergy Symptoms) Discharge Orders: Discharge Order (Routine); Ordered 07/30/23 Ordered By: Ever Rosas Admission Data Admit Date/Time: 07/29/23 09:34 Attending Provider: Ever Rosas Admit Provider: Ever Rosas Primary Care Provider: Dnoy Hidalgo III
[2023-07-30] MEDS ORDERED: dexAMETHasone 4 MG TAB PO SCH (08:00)
[2023-07-30] MEDS: ASPIRIN 81 MG ECTAB PO SCH (08:30)
[2023-07-30] MEDS: DOCUSATE SODIUM 100 MG CAP PO SCH (08:30)
[2023-07-30] MEDS: LOSARTAN/HCTZ 50/12.5MG TAB PO SCH (08:30)
[2023-07-30] MEDS ORDERED: MULTIVITAMIN TAB PO SCH (09:00)
== END 2023-07-30 12:16 | disposition home or self-care (01) ==
LOC: PACUINP 05:23 → ASU 05:23 → 3E 14:43